=== PATIENT | male | born 1975 | race Caucasian/White ===

== ENCOUNTER 2017-04-14 23:04 | Emergency (ER) | payer SELFPAY ==
[2017-04-14 23:09] VITALS: BP 153/96; PULSE 85; TEMP 98.6; BMI 31.5
--- NOTE | 2017-04-15 00:35 | PDOC ---
History of Present Illness - General Chief Complaint: Ear Problem Stated Complaint: EAR PROBLEM Time Seen by Provider: 04/15/17 00:14 History Source: Patient - History of Present Illness Initial Comments: 04/15/17 00:30 42 year old male with right ear pain worsening. denies URI symptoms, reports swimming everyday. denies fever Past History - Past Medical History Allergies/Adverse Reactions: Allergies Allergy/AdvReac Type Severity Reaction Status Date / Time No Known Allergies Allergy Verified 04/14/17 23:08 Home Medications: Ambulatory Orders Ciprofloxacin HCl/Dexameth [Ciprodex Otic Suspension] 4 drop AD BID #1 bottle Cardiac Disorders: Yes (40% ej, has vena cava filter) Other medical history: PE, diverticulitis - Surgical History Abdominal Surgery: Yes (colon resection) - Psycho/Social/Smoking Cessation Hx Anxiety: No Suicidal Ideation: No Smoking Status: No Smoking History: Never smoked Number of Cigarettes Smoked Daily: 0 Review of Systems - Review of Systems Able to Perform ROS?: Yes Is the patient limited Sudanese proficient: No Constitutional: No: Symptoms Reported, See HPI, Chills, Diaphoresis, Fever, Loss of Appetite, Malaise, Night Sweats, Weakness, Weight Stable, Unintentional Wgt. Loss, Unexplained wgt Loss, Other HEENTM: Yes: Ear Pain. No: Symptoms Reported, See HPI, Eye Pain, Blurred Vision , Tearing, Recent change in vision, Double Vision, Cataracts, Ocular Prothesis, Ear Discharge, Nose Pain, Nose Congestion, Tinnitus, Nose Bleeding, Hearing Loss , Throat Pain, Throat Swelling, Mouth Pain, Dental Problems, Difficulty Swallowing, Mouth Swelling, Other Respiratory: No: Symptoms reported, See HPI, Cough, Orthopnea, Shortness of Breath, SOB with Exertion, SOB at Rest, Stridor, Wheezing, Productive cough, Hemoptysis, Other Cardiac (ROS): No: Symptoms Reported, See HPI, Chest Pain, Edema, Irregular Heart Rate, Lightheadedness, Palpitations, Syncope, Chest Tightness, Other *Physical Exam - Vital Signs Last Vital Signs Temp Pulse Resp BP Pulse Ox 98.6 F 85 18 153/96 99 04/14/17 23:05 04/14/17 23:05 04/14/17 23:05 04/14/17 23:05 04/14/17 23:05 - Physical Exam General Appearance: Yes: Appropriately Dressed HEENT: positive: Other (right ear canal erythema/ white discoloration. pain when pinna is pulled) Respiratory/Chest: positive: Lungs Clear, Normal Breath Sounds Medical Decision Making - Medical Decision Making 04/15/17 00:36 A: otitis externa *DC/Admit/Observation/Transfer Diagnosis at time of Disposition: Otitis externa of right ear Qualifiers: Otitis externa type: swimmer's ear Chronicity: acute Qualified Code(s): H60.331 - Swimmer's ear, right ear - Discharge Dispostion Disposition: HOME - Prescriptions Prescriptions: Ciprofloxacin HCl/Dexameth [Ciprodex Otic Suspension] 4 drop AD BID #1 bottle - Patient Instructions Printed Discharge Instructions: DI for Otitis Externa
[2017-04-15] MEDS ORDERED: IBUPROFEN 600 MG TABLET (FP) PO ONE ×2 (00:38→00:45)
== END 2017-04-15 00:54 | disposition home or self-care (01) ==
LOC: JER 23:04
DX: H60.331 Swimmer's ear, right ear (principal)
CPT/HCPCS: 99281-25

== ENCOUNTER 2017-09-08 13:57 | Emergency (ER) | payer OTHER ==
[2017-09-08 14:36] VITALS: BP 114/86; PULSE 73; TEMP 98.7; BMI 33.0
--- NOTE | 2017-09-08 14:41 | PDOC ---
Rapid Medical Evaluation Chief Complaint: Pain, Acute Time Seen by Provider: 09/08/17 14:34 Medical Evaluation: Allergies Allergy/AdvReac Type Severity Reaction Status Date / Time No Known Allergies Allergy Verified 04/14/17 23:08 Vital Signs Temp Pulse Resp BP Pulse Ox 98.7 F 73 18 114/86 100 09/08/17 14:32 09/08/17 14:32 09/08/17 14:32 09/08/17 14:32 09/08/17 14:32 09/08/17 14:39 The patient presents with a chief complaint of: [Left ankle and foot injury] I have performed a brief in-person evaluation of this patient. Pertinent physical exam findings: vss, [Pain to the left lateral malleolus, Paim to the posterior calf. ] I have ordered the following: [Xray to the left ankle and foot. ] The patient will proceed to FT for further evaluation. 09/08/17 14:48
--- NOTE | 2017-09-08 17:21 | PDOC ---
History of Present Illness - General Chief Complaint: Pain, Acute Stated Complaint: LT ANKLE PAIN Time Seen by Provider: 09/08/17 14:34 History Source: Patient Exam Limitations: No Limitations - History of Present Illness Initial Comments: CHIEF COMPLAINT: 42 y/o afebrile male with PMH diverticulitis with reverse colostomy, PE c/o left ankle pain s/p twisting it today at work. HISTORY OF PRESENT ILLNESS: Pt states he twisted his left ankle in an inversion fashion today at work. He states he tried to bear weight but it was too painful. He denies numbness/tingling. Vital signs on arrival are within normal limits. REVIEW OF SYSTEMS: GENERAL/CONSTITUTIONAL: No fever/chills. No weakness. No weight change. MUSCULOSKELETAL: +left ankle swelling and pain. No neck or back pain. SKIN: No rash or easy bruising. NEUROLOGIC: No headache, vertigo, loss of consciousness, or loss of sensation. PHYSICAL EXAM: VITAL_SIGNS: within normal limits GENERAL_APPEARANCE: alert, cooperative, no obvious discomfort. MENTAL_STATUS: speech clear, oriented X 3, responds appropriately to questions. NEURO: motor intact and sensory intact in injured extremity. EXTREMITIES: 2+ dorsalis pedis pulse affected extremity. Mild swelling with TTP to lateral malleolus of left ankle. deformity of medial ankle that is TTP that appears like a ligament tear. Pt cannot bear weight secondary to pain. pain with inversion and eversion of left ankle. SKIN: warm, dry, good color. Past History - Past Medical History Allergies/Adverse Reactions: Allergies Allergy/AdvReac Type Severity Reaction Status Date / Time No Known Allergies Allergy Verified 04/14/17 23:08 Home Medications: Ambulatory Orders NK [No Known Home Medication] 09/08/17 Cardiac Disorders: Yes (40% ej, has vena cava filter) COPD: No GI Disorders: Yes - Surgical History Abdominal Surgery: Yes (colon resection) - Suicide/Smoking/Psychosocial Hx Smoking Status: No Smoking History: Never smoked Have you smoked in the past 12 months: No Number of Cigarettes Smoked Daily: 0 Information on smoking cessation initiated: No Hx Alcohol Use: Yes (social) Drug/Substance Use Hx: Yes (social) Substance Use Type: Marijuana *Physical Exam - Vital Signs Last Vital Signs Temp Pulse Resp BP Pulse Ox 98.7 F 73 18 114/86 100 09/08/17 14:32 09/08/17 14:32 09/08/17 14:32 09/08/17 14:32 09/08/17 14:32 Medical Decision Making - Medical Decision Making A/P: 42 y/o male with ankle injury today. Plan is as follows: 1. left foot/ankle xray Left foot/ankle xray IMPRESSION: NO evidence of acute fracture or dislocation. Will wrap with LA NENA bandage and provide crutches and an Ortho follow up. Will also give PO motrin. INstructed him to follow RICE instructions and f/u with ortho ESTELLE. The patient verbalizes understanding of all instructions, has no further questions and is awaiting discharge. *DC/Admit/Observation/Transfer Diagnosis at time of Disposition: Left ankle sprain Qualifiers: Encounter type: initial encounter Involved ligament of ankle: unspecified ligament Qualified Code(s): S93.402A - Sprain of unspecified ligament of left ankle, initial encounter - Discharge Dispostion Disposition: HOME Condition at time of disposition: Good - Referrals Referrals: Tye King MD [Primary Care Provider] - Nagi Sanz MD [Staff Physician] - - Patient Instructions Printed Discharge Instructions: How to Use Crutches, DI for Ankle Sprain, How To Perform RICE (Rest, Ice, Compress, Elevate) Additional Instructions: Discharge INstructions: -You sprained your ankle -Use LA NENA bandage and crutches for comfort -Take MOtrin or Ibuprofen with food for pain. -Follow RICE instructions -Follow up with Dr. Sanz as soon as possible if symptoms do not improve -REturn to the ER with any worsening or concerning symptoms - Post Discharge Activity Forms/Work/School Notes: Back to Work
[2017-09-08] MEDS ORDERED: IBUPROFEN 400 MG TABLET (FP) PO ONE ×2 (18:14→18:21)
== END 2017-09-08 18:27 | disposition home or self-care (01) ==
LOC: JERFT 13:57 → JER 13:57 → JERFT 18:27
DX: S93.402A Sprain of unspecified ligament of left ankle, initial encounter (principal); X50.1XXA Overexertion from prolonged static or awkward postures, initial encounter; Y93.H3 Activity, building and construction; Y92.69 Other specified industrial and construction area as the place of occurrence of the external cause; Y99.0 Civilian activity done for income or pay
CPT/HCPCS: 73610-TC-LT; 73630-TC-LT; 99281-25

== ENCOUNTER 2018-01-02 20:07 | Inpatient (IN) | payer OTHER ==
--- NOTE | 2018-01-02 20:11 | PDOC ---
Rapid Medical Evaluation Time Seen by Provider: 01/02/18 20:08 Medical Evaluation: Allergies Allergy/AdvReac Type Severity Reaction Status Date / Time No Known Allergies Allergy Verified 04/14/17 23:08 01/02/18 20:08 I have performed a brief in-person evaluation of this patient. The patient presents with a chief complaint of: epigastric cramps x1 week, SOB Pertinent physical exam findings: Lungs CTAB. Abd SNTND. HR-134 I have ordered the following: labs, EKG, cxr The patient will proceed to the ED for further evaluation. Discharge Disposition - Diagnosis Epigastric abdominal pain - Referrals - Patient Instructions - Post Discharge Activity
[2018-01-02 20:47] LABS: BASO % 0.9 % (0-2.0); EOS % 1.5 % (0-4.5); HEMATOCRIT 41.2 % (35.4-49); HEMOGLOBIN 14.4 GM/dL (11.7-16.9); LYMPH % 17.9 % (8-40); MEAN CELL VOLUME 88.4 fl (80-96); MEAN PLT VOLUME 9.2 fl (7.5-11.1); MONO % 8.1 % (3.8-10.2); NEUT % 71.6 % (42.8-82.8); PLATELET COUNT 223 K/MM3 (134-434); RBC 4.66 M/mm3 (4.00-5.60); RDW 12.7 % (11.9-15.9); WHITE BLOOD COUNT 9.8 K/mm3 (4.0-10.0)
[2018-01-02] MEDS ORDERED: HEPARIN NA (PORCINE) 5,000 UNITS/ML 1ML VIAL IVPUSH PRN ×2 (21:22→21:25)
--- NOTE | 2018-01-02 21:26 | PDOC ---
Attending Attestation - HPI HPI: 01/02/18 21:59 The patient is a 42 year old male with a significant past medical history of pulmonary embolism (2005) who presents to the emergency department for evaluation of a 1 day history of pleuritic chest pain and shortness of breath. The patient describes right sided chest pain as sharp, exacerbated with deep inspiration. The patient reports associated symptom of fever. He reports intermittent episodes of sharp epigastric pain which occurred 1 week ago. The patient denies headache, changes in vision, dizziness, chills, diarrhea, constipation, or any changes in urinary output. Allergies: NKDA Social History: Reported marijuana use. No reported cigarette or alcohol consumption. Surgical history: Colon resection <Gigi Hooper - Last Filed: 01/02/18 21:59> - Resident Resident Name: Abel Levine - ED Attending Attestation I have performed the following: I have examined & evaluated the patient, The case was reviewed & discussed with the resident, I agree w/resident's findings & plan, Exceptions are as noted - Physicial Exam PE: 01/02/18 22:44 Patient is awake and alert, well-appearing, tachycardic and hypoxemic on room air Normocephalic and atraumatic PERRLA, EOMI No JVD CTA RRR No lower extremity edema - Medical Decision Making 01/02/18 22:45 Patient is a 42-year-old male with history of DVT/PE who presents with atraumatic right-sided chest and subscapular pain which is pleuritic in nature, tachycardia and hypoxemia. I suspect the. EKG shows no evidence of acute ischemia. Chest x-ray reveals no evidence of pneumothorax, cardiomegaly or pericardial effusion. I do not suspect a dissection at this time. We will administer a heparin bolus at 80 mg/kg pending CTA. Will rule out PE. Will reassess. 01/03/18 00:14 patient is Hemodynamically stable. Heart rate has decreased to 97. CTA of chest reveals multiple bilateral pulmonary emboli. Will initiate heparin drip. Will admit to telemetry further evaluation and treatment. Will obtain lower extremity Doppler ultrasound. <Gael Abernathy - Last Filed: 01/03/18 00:14> Attestations - Attestations Documentation prepared by Gigi Hooper, acting as medical director for Gael Abernathy MD. <Gigi Hoopre - Last Filed: 01/02/18 21:59>
--- NOTE | 2018-01-02 21:28 | PDOC ---
History of Present Illness - General Chief Complaint: Shortness of Breath Stated Complaint: RESPIRATORY Time Seen by Provider: 01/02/18 20:08 History Source: Patient Exam Limitations: No Limitations - History of Present Illness Initial Comments: 01/02/18 21:28 The patient is a 42M with a PMH of PE in 2005 not on anticoagulation who presents to the ER with 1 day history of pleuritic CP and shortness of breath. The patient states that 1 week ago the patient had sharp, intermittent epigastric pain associated with low grade fevers. He states that today, he began to feel R sided chest pain which he describes as sharp and worse with deep breaths. This was associated with shortness of breath. He denies nausea, vomiting, and does not believe this feels like his previous PE. Past History - Past Medical History Allergies/Adverse Reactions: Allergies Allergy/AdvReac Type Severity Reaction Status Date / Time No Known Allergies Allergy Verified 01/02/18 20:13 Home Medications: Ambulatory Orders NK [No Known Home Medication] 09/08/17 Cardiac Disorders: Yes (40% ej, has vena cava filter) COPD: No GI Disorders: Yes - Surgical History Abdominal Surgery: Yes (colon resection) - Suicide/Smoking/Psychosocial Hx Smoking Status: No Smoking History: Never smoked Have you smoked in the past 12 months: No Number of Cigarettes Smoked Daily: 0 Information on smoking cessation initiated: No Hx Alcohol Use: No Drug/Substance Use Hx: No Substance Use Type: Marijuana Review of Systems - Review of Systems Able to Perform ROS?: Yes Comments:: 01/02/18 21:41 GENERAL/CONSTITUTIONAL: No fever or chills. No weakness. HEAD, EYES, EARS, NOSE AND THROAT: No change in vision. No ear pain or discharge. No sore throat. CARDIOVASCULAR: Positive for CP. No palpitations or lightheadedness. RESPIRATORY: Positive for shortness of breath. No cough, wheezing, or hemoptysis. GASTROINTESTINAL: No nausea, vomiting, diarrhea, constipation, or abdominal pain. GENITOURINARY: No dysuria, frequency, hematuria, or change in urination. MUSCULOSKELETAL: No joint or muscle swelling or pain. No neck or back pain. SKIN: No rash or lesions. NEUROLOGIC: No headache, numbness, tingling, weakness, loss of consciousness, or change in strength/sensation. ENDOCRINE: No increased thirst. No abnormal weight change. HEMATOLOGIC/LYMPHATIC: No anemia, easy bleeding, or history of blood clots. ALLERGIC/IMMUNOLOGIC: No hives or skin allergy. Is the patient limited Albanian proficient: No *Physical Exam - Vital Signs Last Vital Signs Temp Pulse Resp BP Pulse Ox 98.6 F 134 H 17 144/76 100 01/02/18 20:10 01/02/18 20:10 01/02/18 20:10 01/02/18 20:10 01/02/18 20:10 - Physical Exam Comments: 01/02/18 21:43 GENERAL: Well developed, well nourished. Awake and alert. No acute distress. HEENT: Normocephalic, atraumatic. Hearing grossly normal. Moist mucous membranes. PERRLA, EOMI. No conjunctival pallor. Sclera are non-icteric. NECK: Supple. Full ROM. CARDIOVASCULAR: Regular rate and rhythm. No murmurs, rubs, or gallops. Distal pulses are 2+ and symmetric. PULMONARY: No evidence of respiratory distress. Decreased lung sounds in R lung. No wheezing, rales or rhonchi. ABDOMINAL: Soft. Non-tender. Non-distended. No rebound or guarding. GENITOURINARY: No CVA tenderness bilaterally. MUSCULOSKELETAL: Normal range of motion at all joints. No bony deformities or tenderness. EXTREMITIES: No cyanosis. No clubbing. No edema. No calf tenderness or swelling. SKIN: Warm and dry. Normal capillary refill. No rashes. No jaundice. NEUROLOGICAL: Alert, awake, appropriate. Cranial nerves 2-12 intact. Normal speech. Gait is normal without ataxia. PSYCHIATRIC: Cooperative. Good eye contact. Appropriate mood and affect. Heart Score/ECG Review #1 General ECG Interpretation: Sinus Rhythm, Normal Rate, Normal Intervals, No acute ischemic changes Compared to previous ECG there are: Changes noted 01/02/18 21:44 Vent rate 130 Sinus tach NM 142 QRS 92 QTc 423 No acute ischemic changes No ADALBERTO or STD ED Treatment Course - LABORATORY CBC & Chemistry Diagram: 01/02/18 20:37 01/02/18 20:37 - ADDITIONAL ORDERS Additional order review: 01/02/18 20:37 RBC 4.66 MCV 88.4 MCHC 35.0 RDW 12.7 MPV 9.2 Neutrophils % 71.6 Lymphocytes % 17.9 Monocytes % 8.1 Eosinophils % 1.5 Basophils % 0.9 - RADIOLOGY Radiology Studies Ordered: Category Date Time Status CHEST X-RAY PORTABLE* [RAD] Stat Radiology 01/02/18 21:08 Completed Medical Decision Making - Medical Decision Making 01/02/18 21:25 The patient is a 42M with a PMH of PE in 2005 and diverticulitis s/p colostomy who presents to the ER with pleuritic CP which is R sided. I have a very high suspicion of PE in this patient. CXR does not indicate pericardial effusion, no pneumothroax, and no dissection. I have discussed the risks and benefits of a heparin bolus with the patient. The patient is not currently anticoagulated. Will bolus 8000 while pending BUN/Cr for CTA. Pt is not currently hypotensive but has developed tachypnea since his stay in ER. Tachy to 110's-120's which is sinus tach per EKG. 01/03/18 00:27 CTA was done indicating b/l PE. Will place pt on heparin drip. Pt endorsed to Dr. Jarrell for admission. *DC/Admit/Observation/Transfer Diagnosis at time of Disposition: Pulmonary embolism Qualifiers: Pulmonary embolism type: other Chronicity: acute Acute cor pulmonale presence: without acute cor pulmonale Qualified Code(s): I26.99 - Other pulmonary embolism without acute cor pulmonale - Discharge Dispostion Condition at time of disposition: Guarded Decision to Admit order: Yes - Referrals - Patient Instructions - Post Discharge Activity
[2018-01-02 21:32] LABS: ALBUMIN 3.9 g/dl (3.4-5.0); ANION GAP 8 (8-16); BILIRUBIN,TOTAL 1.2 mg/dL (0.2-1.0); BLOOD UREA NITROGEN 7 mg/dL (7-18); CALCIUM 8.7 mg/dL (8.5-10.1); CHLORIDE 102 mmol/L (98-107); CO2 27 mmol/L (21-32); CREATININE 1.2 mg/dL (0.7-1.3); GLUCOSE,RANDOM 117 mg/dL (74-106); LIPASE 80 U/L (73-393); SGPT/ALT 17 U/L (12-78); SODIUM 137 mmol/L (136-145); TOT PROT 7.6 g/dl (6.4-8.2)
[2018-01-02 21:35] LABS: ALK PHOS 89 U/L (45-117)
[2018-01-02 21:39] LABS: POTASSIUM 3.8 mmol/L (3.5-5.1); SGOT/AST 18 U/L (15-37)
[2018-01-02 22:37] LABS: URINE APPEARANCE CLEAR; URINE BILIRUBIN NEGATIVE (<2.0 mg/dL); URINE COLOR YELLOW; URINE GLUCOSE (UA) NEGATIVE (NEGATIVE); URINE KETONE NEGATIVE (NEGATIVE); URINE LEUK ESTERASE NEGATIVE (NEGATIVE); URINE NITRITE NEGATIVE (NEGATIVE); URINE PROTEIN NEGATIVE (NEGATIVE); URINE UROBILINOGEN NEGATIVE mg/dL (0.2-1.0)
[2018-01-02 23:56] LABS: INR 1.38 (0.82-1.09); PROTHROMBIN TIME (PATIENT) 15.6 SEC (9.7-13.0)
[2018-01-03] MEDS ORDERED: HEPARIN INFUSION - 25,000 UNITS/500 ML INFUS.BAG IVPB SCH (00:30)
[2018-01-03] MEDS: HEPARIN INFUSION - 25,000 UNITS/500 ML INFUS.BAG IVPB SCH (00:43)
--- NOTE | 2018-01-03 00:46 | HP ---
CHIEF COMPLAINT: Pain R chest with SOB x1 day PCP: HISTORY OF PRESENT ILLNESS: Pt is a 42 yo M with PMHx of diverticulosis, previous PE s/p surgical clot removal, with IVC filter, not on anticoagulation presenting with a hx of sudden onset of sharp 8/10, non radiating right sided chest pain that started while watching TV. The pain was worsened by taking deep breaths, resulting in shallow respiration. No N/V/diaphoresis. No associated leg swelling. Pt has been having intermittent R groin cramps, with no associated swellings. Since August 2017, he has been on workers compensation for hurting his L foot/heel. A week prior to presentation, he felt generalized malaise,and he noticed recurrent abdominal cramping associated with chills but no objective fevers, and relieved with tylenol. No change in diet or bowel habits. He then started to experience cramps in the R groin "charley horses" worsened by leg flexion and relieved by straightening the legs or moving around. He came in today because of difficulty breathing from the chest pain. He had a sudden large PE in 2005 after rising from a hospital bed prior to surgery for diverticulosis in 2005. At that time he had thoracotomy done for clot retrieval and IVC filter insertion. He remained on coumadin for 6 years following, but was finally taken off coumadin around 5 years ago. Pt presented to the ED tachycardic, tachypneic and was sating in the 90s. He was placed on 2L O2 , now sating in 100s. ER course was notable for: (1) CXR- N, CBC-wnl, CMP-wnl, PT-1,13, UA-ve (2) CTA- Bilateral PE - with filling defects in both R and L upper lobe brs. (3)Pt was started on heparin drip (4) EKG- sinus tachycardia, Ventricular rate 130bpm, Qt/QTc-288/423 Recent Travel: PAST MEDICAL HISTORY: Diverticulosis PE (2005) PAST SURGICAL HISTORY: Thoracotomy with clot retrieval and IVC filter insertion Social History: Lives with mother and 22 yr old son Smoking:Never Alcohol:Social Drugs: Family History: Prostate cancer in grandfather Lung cancer in non smoking grandmother Allergies No Known Allergies Allergy (Verified 01/02/18 20:13) HOME MEDICATIONS: Home Medications Medication Instructions Recorded NK [No Known Home Medication] 09/08/17 REVIEW OF SYSTEMS CONSTITUTIONAL: Absent: fever, chills+, diaphoresis, generalized weakness, malaise, loss of appetite, weight change HEENT: Absent: rhinorrhea, nasal congestion, throat pain, throat swelling, difficulty swallowing, mouth swelling, ear pain, eye pain, visual changes CARDIOVASCULAR: Absent: chest pain, syncope, palpitations, irregular heart rate, lightheadedness , peripheral edema RESPIRATORY: Absent: cough, shortness of breath+, dyspnea with exertion, orthopnea, wheezing , stridor, hemoptysis GASTROINTESTINAL: Absent: abdominal pain+, abdominal distension, nausea, vomiting, diarrhea, constipation, melena, hematochezia GENITOURINARY: Absent: dysuria, frequency, urgency, hesitancy, hematuria, flank pain, genital pain MUSCULOSKELETAL: Absent: myalgia, arthralgia, joint swelling, back pain, neck pain SKIN: Absent: rash, itching, pallor HEMATOLOGIC/IMMUNOLOGIC: Absent: easy bleeding, easy bruising, lymphadenopathy, frequent infections ENDOCRINE: Absent: unexplained weight gain, unexplained weight loss, heat intolerance, cold intolerance NEUROLOGIC: Absent: headache, focal weakness or paresthesias, dizziness, unsteady gait, seizure, mental status changes, bladder or bowel incontinence PSYCHIATRIC: Absent: anxiety, depression, suicidal or homicidal ideation, hallucinations. PHYSICAL EXAMINATION Vital Signs - 24 hr 01/02/18 20:10 Temperature 98.6 F Pulse Rate 134 H Respiratory 17 Rate Blood Pressure 144/76 O2 Sat by Pulse 100 Oximetry (%) GENERAL: Awake, alert, and fully oriented, on 2L NC, speaks in full sentences, not using accessory muscles. NECK: Normal range of motion, supple without lymphadenopathy, JVD, or masses. LUNGS: Breath sounds equal, clear to auscultation bilaterally. No wheezes, and no crackles. HEART: Sternotomy scar. tachycardic, S1 and S2 without murmur ABDOMEN: Midline, infraumbilical surgical scar, LLQ surgical scar. Soft, nontender, not distended, normoactive bowel sounds, No visible inguinal masses, no hernias, no tenderness to palpation MUSCULOSKELETAL: Normal range of motion at all joints. UPPER EXTREMITIES: 2+ pulses, warm, well-perfused. No cyanosis. LOWER EXTREMITIES: 2+ pulses, warm, well-perfused. No calf tenderness. No peripheral edema. NEUROLOGICAL: Cranial nerves II-XII intact. Normal speech. Normal gait. Laboratory Results - last 24 hr 01/02/18 01/02/18 01/02/18 20:37 20:37 20:37 WBC 9.8 RBC 4.66 Hgb 14.4 Hct 41.2 MCV 88.4 MCH 31.0 MCHC 35.0 RDW 12.7 Plt Count 223 MPV 9.2 Neutrophils % 71.6 Lymphocytes % 17.9 Monocytes % 8.1 Eosinophils % 1.5 Basophils % 0.9 PT with INR INR Sodium 137 Potassium 3.8 Chloride 102 Carbon Dioxide 27 Anion Gap 8 BUN 7 Creatinine 1.2 Creat Clearance w eGFR > 60 Random Glucose 117 H Calcium 8.7 Magnesium 2.0 Total Bilirubin 1.2 H AST 18 ALT 17 Alkaline Phosphatase 89 Creatine Kinase 74 Troponin I < 0.02 Total Protein 7.6 Albumin 3.9 Lipase 80 TSH 0.70 Urine Color Urine Appearance Urine pH Ur Specific [place] Urine Protein Urine Glucose (UA) Urine Ketones Urine Blood Urine Nitrite Urine Bilirubin Urine Urobilinogen Ur Leukocyte Esterase 01/02/18 01/02/18 22:24 23:34 WBC RBC Hgb Hct MCV MCH MCHC RDW Plt Count MPV Neutrophils % Lymphocytes % Monocytes % Eosinophils % Basophils % PT with INR 15.60 H INR 1.38 H Sodium Potassium Chloride Carbon Dioxide Anion Gap BUN Creatinine Creat Clearance w eGFR Random Glucose Calcium Magnesium Total Bilirubin AST ALT Alkaline Phosphatase Creatine Kinase Troponin I Total Protein Albumin Lipase TSH Urine Color Yellow Urine Appearance Clear Urine pH 5.0 Ur Specific [place] 1.015 Urine Protein Negative Urine Glucose (UA) Negative Urine Ketones Negative Urine Blood Negative Urine Nitrite Negative Urine Bilirubin Negative Urine Urobilinogen Negative Ur Leukocyte Esterase Negative ASSESSMENT/PLAN: 2 yo M with PMHx of diverticulosis, previous PE s/p surgical clot removal, with IVC filter, not on anticoagulation, presenting with a hx of sudden onset of sharp right sided chest pain at rest with associated SOB, found to have bilateral PE and placed on heparin drip Recurrent PE: Likely unprovoked considering his age and absent visible risk factors Previous clot massive enough for thoracotomy for thrombectomy Continue heparin drip For likely washout then placing on NOAC Needs work up Hemonc consult PTT Groin pain: Cramping in nature, no visible swellings RLE duplex Tabs tylenol 650mg Q4H PO PRN PPX: DVT- heparin GI- not needed at this time Dispo: Admit Tele Visit type - Emergency Visit Emergency Visit: Yes ED Registration Date: 01/03/18 Care time: The patient presented to the Emergency Department on the above date and was hospitalized for further evaluation of their emergent condition. - New Patient This patient is new to me today: Yes Date on this admission: 01/03/18 - Critical Care Critical Care patient: No Hospitalist Screening - Colonoscopy Questionnaire Colonoscopy Questionnaire: Colonoscopy Questionnaire - Patient: 50 - 75 years old and never had a screening colonoscopy: No History of colon or rectal polyps, or CA: No History of IBD, Crohn's disease or UC: No History of abdominal radiation therapy as a child: No - Relative: 1 with colon or rectal CA, or polyps at age 60 or younger: No Colon or rectal CA diagnosed at age 45 or younger: No Multiple relatives with colon or rectal CA: No - Outcome: Screening Result: Negative Screen
--- NOTE | 2018-01-03 02:09 | PN ---
Teaching Attending Note Name of Resident: Susana Jarrell ATTENDING PHYSICIAN STATEMENT I saw and evaluated the patient. I reviewed the resident's note and discussed the case with the resident. I agree with the resident's findings and plan as documented. SUBJECTIVE: Patient is a 42 yo man with history of pulmonary embolism in 2006, diverticulitis, colon resection, IVC filter, not on anticoagulation presented with a sudden onset of sharp nonradiating right sided pleuritic pain that started while he was watching TV. The pain was worsened by taking deep breaths, resulting in shallow respiration. In the ER CTPA showed multiple bilateral PE. In 2005, he got workup for PE, got IVC filter and started on coumadin which was stopped in 2011? because they said his PE was "provoked". Has right upper thigh pain. No obvious risk factor for PE. OBJECTIVE: Vital Signs Period Temp Pulse Resp BP Sys/Umana Pulse Ox Last 24 Hr 98.6 F 134 17 144/76 97-100 Alert, but in no acute distress. HEENT: No Jaundice, redness or discharge, PERRLA, EOMI. External ears normal and hearing grossly intact. No nasal discharge. Neck: Supple, nontender. No palpable adenopathy or thyromegaly. No JVD Chest: Good effort. Clear to auscultation and percussion. Heart: Regular. No S3, rub or murmur Abdomen: Not distended, soft, nontender and no HSM Ext: Peripheral pulses intact. No leg edema. No calf/thigh tenderness or swelling Neuro: Alert. Oriented x3. CN 2-12 grossly intact. Sensation grossly intact in all four extremities and DTR are symmetric. Home Medications Medication Instructions Recorded NK [No Known Home Medication] 09/08/17 Current Medications Generic Name Dose Route Start Last Admin Trade Name Freq PRN Reason Stop Dose Admin Acetaminophen 650 mg 01/03/18 01:24 Tylenol - PO Q4H PRN PAIN LEVEL 1-5 Heparin Sodium (Porcine) 8,000 unit 01/02/18 21:25 01/02/18 22:40 Heparin - IVPUSH 8,000 unit PRN PRN Administration Heparin Heparin Sodium/Dextrose 25,000 units in 500 mls @ 36 mls/hr 01/03/18 00:30 00:43 Heparin Infusion - IVPB 1,800 units/hr TITR MIGUEL 36 mls/hr Protocol Administration 1,800 UNITS/HR Laboratory Results - last 24 hr 01/02/18 01/02/18 01/02/18 20:37 20:37 20:37 WBC 9.8 RBC 4.66 Hgb 14.4 Hct 41.2 MCV 88.4 MCH 31.0 MCHC 35.0 RDW 12.7 Plt Count 223 MPV 9.2 Neutrophils % 71.6 Lymphocytes % 17.9 Monocytes % 8.1 Eosinophils % 1.5 Basophils % 0.9 PT with INR INR Sodium 137 Potassium 3.8 Chloride 102 Carbon Dioxide 27 Anion Gap 8 BUN 7 Creatinine 1.2 Creat Clearance w eGFR > 60 Random Glucose 117 H Calcium 8.7 Magnesium 2.0 Total Bilirubin 1.2 H AST 18 ALT 17 Alkaline Phosphatase 89 Creatine Kinase 74 Troponin I < 0.02 Total Protein 7.6 Albumin 3.9 Lipase 80 TSH 0.70 Urine Color Urine Appearance Urine pH Ur Specific [place] Urine Protein Urine Glucose (UA) Urine Ketones Urine Blood Urine Nitrite Urine Bilirubin Urine Urobilinogen Ur Leukocyte Esterase 01/02/18 01/02/18 22:24 23:34 WBC RBC Hgb Hct MCV MCH MCHC RDW Plt Count MPV Neutrophils % Lymphocytes % Monocytes % Eosinophils % Basophils % PT with INR 15.60 H INR 1.38 H Sodium Potassium Chloride Carbon Dioxide Anion Gap BUN Creatinine Creat Clearance w eGFR Random Glucose Calcium Magnesium Total Bilirubin AST ALT Alkaline Phosphatase Creatine Kinase Troponin I Total Protein Albumin Lipase TSH Urine Color Yellow Urine Appearance Clear Urine pH 5.0 Ur Specific [place] 1.015 Urine Protein Negative Urine Glucose (UA) Negative Urine Ketones Negative Urine Blood Negative Urine Nitrite Negative Urine Bilirubin Negative Urine Urobilinogen Negative Ur Leukocyte Esterase Negative ASSESSMENT AND PLAN: Will admit as an Observation case since expected length of stay isless than 2 midnights. 1. Pulmonary embolism - Patient has been started on heparin drip after initial bolus dose in the ER. Will monitor for hypoxia and hypotension and switch to DOAC tomorrow - about 3 hours after stopping IV heparin. Monitor anti-Hep Xa level. Needs comprehensive workup to search for risk factor for PE. 2. Right thigh pain - Doppler scan to rule out DVT. 3. Advance directives - Full code.
[2018-01-03] MEDS: ACETAMINOPHEN 325 MG TABLET (FP) PO PRN ×2 (03:11→21:35)
[2018-01-03 03:37] VITALS: BMI 31.1
[2018-01-03 07:43] LABS: BASO % 0.3 % (0-2.0); HEMATOCRIT 37.9 % (35.4-49); HEMOGLOBIN 13.2 GM/dL (11.7-16.9); LYMPH % 21.9 % (8-40); MCH 30.9 pg (25.7-33.7); MCHC 34.9 g/dl (32.0-35.9); MEAN CELL VOLUME 88.6 fl (80-96); MEAN PLT VOLUME 9.4 fl (7.5-11.1); MONO % 8.5 % (3.8-10.2); NEUT % 68.3 % (42.8-82.8); PLATELET COUNT 224 K/MM3 (134-434); RBC 4.28 M/mm3 (4.00-5.60); WHITE BLOOD COUNT 9.8 K/mm3 (4.0-10.0)
[2018-01-03 08:29] LABS: MAGNESIUM 2.1 mg/dL (1.8-2.4); PHOSPHOROUS 4.2 mg/dL (2.5-4.9)
--- NOTE | 2018-01-03 11:08 | CONSULT ---
Consult Consult Specialty:: Hematology/Oncology Referred by:: Dr. SRIVASTAVA Reason for Consultation:: Bilateral PE's - History of Present Illness Chief Complaint: Shortness of breath History of Present Illness: 42 y/o male with a prior Hxx of PE s/p thoracotomy for clot removal and IVC filter placement in 2005 prior to surgery for diverticulosis, not on AC presented with right sided chest pain. Pt was on coumadin for 6 years following the PE. In the ED, he was noted to be tachycardic, tachypneic, CTA showed the presence of a bilateral PE with filling defects in R, L upper lobes. EKG showed sinus tachycardia. He was started on IV heparin. Hematology/oncology has been consulted for further management. 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 He says he is able to ambulate with crutches and the help of his other foot. He has no other major recent medical problems, surgeries etc. - History Source History Provided By: Patient Limitations to Obtaining History: No Limitations - Alcohol/Substance Use Hx Alcohol Use: No - Smoking History Smoking history: Never smoked Have you smoked in the past 12 months: No Aproximately how many cigarettes per day: 0 Home Medications - Allergies Allergies/Adverse Reactions: Allergies Allergy/AdvReac Type Severity Reaction Status Date / Time No Known Allergies Allergy Verified 01/02/18 20:13 - Home Medications Home Medications: Ambulatory Orders NK [No Known Home Medication] 09/08/17 Review of Systems Findings/Remarks: SOB, pain in the right upper quadrant migrating upto his chin Physical Exam Vital Signs: Vital Signs Temperature 98.3 F 01/03/18 06:00 Pulse Rate 79 01/03/18 06:00 Respiratory Rate 20 01/03/18 06:00 Blood Pressure 107/63 01/03/18 06:00 O2 Sat by Pulse Oximetry (%) 98 01/03/18 03:42 Labs: CBC, BMP 01/03/18 06:00 01/02/18 20:37 Assessment/Plan 42 y/o male with Hx of prior bilateral PE (unprovoked, as happened prior to surgery per patients account) sp 5 years on coumadin and with IVC filter in place now presenting with another unprovoked B/L PE Acute PE -Agree with plan to place patient on unfractionated heparin with a bridge to coumadin per his choice. I discussed DOAC's with him at bedside today but he has a preference for coumadin- having taken it in the past. -continue O2 via NC to keep o2 sats >90% -recommend early ambulation -if he becomes hemodyanamially unstable, hypotensive with SBP <80 , needs urgent evaluation for thrombectomy/ thrombolytic therapy -discuss with vascular surgery if indwelling filter can be removed as this is likely a nidus for clot formation at this time Hypercoagulable work-up -given that he is 42 years of age and this is a second unprovoked PE. definitely needs full hypercoagulable work-up, to be repeated again in 12 weeks -would recommend checking Factor V leiden, prothrombin G [id number] mutation, Protein C & S levels (could be artificially altered however in the setting of acute PE and AC), Antithrombin III, JAK2 mutation, -also include work-up for anti-phospholipid syndrome (lupus anticoagulant, Anticardiolipin Ab IgG & IgM, AntiB2 glycoprotein I IgG/IgA) -He needs close follow-up with hematology upon discharge. Thank you for the consultation.
--- NOTE | 2018-01-03 15:13 | HOSP ---
Subjective - Review of Symptoms Subjective: asymptomatic. states CP has resolved since starting medication last night. also breathing has improved. denies CP, SOB, fever, chills, N/V/C/D, hemoptysis Current Medications Generic Name Dose Route Start Last Admin Trade Name Freq PRN Reason Stop Dose Admin Acetaminophen 650 mg 01/03/18 01:24 01/03/18 03:11 Tylenol - PO 650 mg Q4H PRN Administration PAIN LEVEL 1-5 Apixaban 10 mg 01/03/18 22:00 Eliquis - PO BID MIGUEL Heparin Sodium (Porcine) 8,000 unit 01/02/18 21:25 01/02/18 22:40 Heparin - IVPUSH 8,000 unit PRN PRN Administration Heparin Heparin Sodium/Dextrose 25,000 units in 500 mls @ 36 mls/hr 01/03/18 00:30 00:43 Heparin Infusion - IVPB 1,800 units/hr TITR MIGUEL 36 mls/hr Protocol Administration 1,800 UNITS/HR Last Vital Signs Temp Pulse Resp BP Pulse Ox 98.5 F 82 18 124/68 98 01/03/18 13:50 01/03/18 13:50 01/03/18 13:50 01/03/18 13:50 01/03/18 10:00 General NAD CV S1 S2 RRR no murmur/rub/gallop Lungs CTA B/L no wheezing/rales/rhonchi CBCD WBC 9.8 K/mm3 (4.0-10.0) 01/03/18 06:00 RBC 4.28 M/mm3 (4.00-5.60) 01/03/18 06:00 Hgb 13.2 GM/dL (11.7-16.9) 01/03/18 06:00 Hct 37.9 % (35.4-49) 01/03/18 06:00 MCV 88.6 fl (80-96) 01/03/18 06:00 MCHC 34.9 g/dl (32.0-35.9) 01/03/18 06:00 RDW 13.0 % (11.9-15.9) 01/03/18 06:00 Plt Count 224 K/MM3 (134-434) 01/03/18 06:00 MPV 9.4 fl (7.5-11.1) 01/03/18 06:00 CMP Sodium 137 mmol/L (136-145) 01/02/18 20:37 Potassium 3.8 mmol/L (3.5-5.1) 01/02/18 20:37 Chloride 102 mmol/L (98-107) 01/02/18 20:37 Carbon Dioxide 27 mmol/L (21-32) 01/02/18 20:37 Anion Gap 8 (8-16) 01/02/18 20:37 BUN 7 mg/dL (7-18) 01/02/18 20:37 Creatinine 1.2 mg/dL (0.7-1.3) 01/02/18 20:37 Creat Clearance w eGFR > 60 (>60) 01/02/18 20:37 Calcium 8.7 mg/dL (8.5-10.1) 01/02/18 20:37 Total Bilirubin 1.2 mg/dL (0.2-1.0) H 01/02/18 20:37 AST 18 U/L (15-37) 01/02/18 20:37 ALT 17 U/L (12-78) 01/02/18 20:37 Alkaline Phosphatase 89 U/L (45-117) 01/02/18 20:37 Total Protein 7.6 g/dl (6.4-8.2) 01/02/18 20:37 Albumin 3.9 g/dl (3.4-5.0) 01/02/18 20:37 A/P 42yo M with PMH PE s/p IVC filter and diverticulitis s/p colon resection presented to ER with SOB and pleuritic CP and found to have B/L PE 1. B/L PE- on heparin ggt. symptoms improved. saturating well on 2L NC, hemodynamically stable. pt states he had hypercoagability workup in the past which was negative. IVC filter was placed and never removed becauses the side of the filter eroded into the side of the IVC. will switch pt over to eliquis 10mg BID tonight. stop heparin ggt at 8pm. counselled on risk/benefits of NOAC. states he was difficult to control on coumadin and would prefer NOAC. recommend to f/u with hematology to repeat hypercoagability workup in the future as this is a 2nd event 2. diverticulitis s/p colon resection 3. d/w pt in detail about new medication and need for follow up. all questions answered. spoke with hematology as well regarding plan. if pt remains hemodynamically stable can d/c tomorrow on eliquis Physical Examination Vital Signs: Vital Signs Temperature 98.5 F 01/03/18 13:50 Pulse Rate 82 01/03/18 13:50 Respiratory Rate 18 01/03/18 13:50 Blood Pressure 124/68 01/03/18 13:50 O2 Sat by Pulse Oximetry (%) 98 01/03/18 10:00 Labs: CBC, BMP 01/03/18 06:00 01/02/18 20:37
[2018-01-03] MEDS: APIXABAN 5 MG TABLET PO SCH (21:35)
[2018-01-04] MEDS: HEPARIN INFUSION - 25,000 UNITS/500 ML INFUS.BAG IVPB SCH (06:21)
[2018-01-04] MEDS: ACETAMINOPHEN 325 MG TABLET (FP) PO PRN (06:21)
[2018-01-04 07:38] LABS: HEMATOCRIT 39.3 % (35.4-49); HEMOGLOBIN 13.4 GM/dL (11.7-16.9); MEAN CELL VOLUME 88.1 fl (80-96); MEAN PLT VOLUME 9.4 fl (7.5-11.1); PLATELET COUNT 246 K/MM3 (134-434); RBC 4.46 M/mm3 (4.00-5.60); RDW 12.8 % (11.9-15.9); WHITE BLOOD COUNT 8.7 K/mm3 (4.0-10.0)
[2018-01-04] MEDS: APIXABAN 5 MG TABLET PO SCH ×2 (08:55→09:29)
--- NOTE | 2018-01-04 11:40 | PN ---
Physical Exam: SUBJECTIVE: Patient seen and examined. He is complaining of right sided back pain, radiating down. He denies SOB, palpitations. OBJECTIVE: Vital Signs Period Temp Pulse Resp BP Sys/Umana Pulse Ox Last 24 Hr 98.0 F-99.4 F 69-92 18-20 110-132/56-88 97-99 GENERAL: The patient is awake, alert, and fully oriented, in no acute distress. HEAD: Normal with no signs of trauma. EYES: extraocular movements intact, sclera anicteric, conjunctiva clear. ENT: moist mucous membranes. LUNGS: Breath sounds equal, clear to auscultation bilaterally, no wheezes, no crackles, no accessory muscle use. HEART: Regular rate and rhythm, S1, S2 without murmur, rub or gallop. EXTREMITIES: no edema. NEUROLOGICAL: Normal speech, gait not observed. PSYCH: Normal mood, normal affect. SKIN: Warm, dry, normal turgor. Laboratory Results - last 24 hr 01/04/18 06:00 WBC 8.7 RBC 4.46 Hgb 13.4 Hct 39.3 MCV 88.1 MCH 30.0 MCHC 34.0 RDW 12.8 Plt Count 246 MPV 9.4 Active Medications Generic Name Dose Route Start Last Admin Trade Name Freq PRN Reason Stop Dose Admin Acetaminophen 650 mg 01/03/18 01:24 01/04/18 06:21 Tylenol - PO 650 mg Q4H PRN Administration PAIN LEVEL 1-5 Apixaban 10 mg 01/03/18 22:00 01/04/18 09:29 Eliquis - PO Not Given BID [facility] Heparin Sodium (Porcine) 8,000 unit 01/02/18 21:25 01/02/18 22:40 Heparin - IVPUSH 8,000 unit PRN PRN Administration Heparin Heparin Sodium/Dextrose 25,000 units in 500 mls @ 36 mls/hr 01/03/18 00:30 06:21 Heparin Infusion - IVPB Not Given TITR [facility] Protocol 1,800 UNITS/HR ASSESSMENT/PLAN: 42 yo M with PMHx of diverticulosis, previous PE s/p surgical clot removal, with IVC filter, not on anticoagulation, presenting with a hx of sudden onset of sharp right sided chest pain at rest with associated SOB, found to have bilateral PE and placed on heparin drip that was transitioned to Eliquis. Recurrent PE: -second PE, recently immobilized due to foot trauma -previously had thrombectomy-Continue Eliquis 10 mg BID -Hematology consulted, will need to f/u as outpatient Right back pain radiating to groin: RLE duplex done, UA nl, Renal US normal tylenol 650mg Q4H PO PRN PPX: DVT Eliquis Disposition: Tele, discharge today Problem List - Problems (1) Pulmonary embolism Code(s): I26.99 - OTHER PULMONARY EMBOLISM WITHOUT ACUTE COR PULMONALE Qualifiers: Pulmonary embolism type: other Chronicity: acute Acute cor pulmonale presence: without acute cor pulmonale Qualified Code(s): I26.99 - Other pulmonary embolism without acute cor pulmonale Visit type - Emergency Visit Emergency Visit: Yes ED Registration Date: 01/03/18 Care time: The patient presented to the Emergency Department on the above date and was hospitalized for further evaluation of their emergent condition. - New Patient This patient is new to me today: Yes Date on this admission: 01/04/18 - Critical Care Critical Care patient: No - Discharge Referral Referred to [facility] Med P.C.: No
--- NOTE | 2018-01-04 11:47 | PN ---
Teaching Attending Note Name of Resident: Sherri Platt ATTENDING PHYSICIAN STATEMENT I saw and evaluated the patient. I reviewed the resident's note and discussed the case with the resident. I agree with the resident's findings and plan as documented. SUBJECTIVE: OBJECTIVE: ASSESSMENT AND PLAN: 42 y/o male admitted for bilateral PE and DVT unprovoked pt to be d/c today on eliquis will obtain US of the abdomen to assess for possible renal stone due to colic pain that occurs from time to time patient can be d/c
--- NOTE | 2018-01-04 11:53 | PN ---
Progress Note (short form) - Note Progress Note: Hematology/Oncology follow-up Note S: Patient feels better today, walking around in the hallway. Last Vital Signs Temp Pulse Resp BP Pulse Ox 98.5 F 92 H 20 114/88 99 01/04/18 10:00 01/04/18 10:00 01/04/18 10:00 01/04/18 10:00 01/04/18 10:00 PE : AOX3, PERRLA CTA (BL) Soft abdomen No c/c/e Current Medications Generic Name Dose Route Start Last Admin Trade Name Freq PRN Reason Stop Dose Admin Acetaminophen 650 mg 01/03/18 01:24 01/04/18 06:21 Tylenol - PO 650 mg Q4H PRN Administration PAIN LEVEL 1-5 Apixaban 10 mg 01/03/18 22:00 01/04/18 09:29 Eliquis - PO Not Given BID [facility] Heparin Sodium (Porcine) 8,000 unit 01/02/18 21:25 01/02/18 22:40 Heparin - IVPUSH 8,000 unit PRN PRN Administration Heparin Heparin Sodium/Dextrose 25,000 units in 500 mls @ 36 mls/hr 01/03/18 00:30 06:21 Heparin Infusion - IVPB Not Given TITR [facility] Protocol 1,800 UNITS/HR A/P : 42 y/o male with Hx of prior bilateral PE (unprovoked, as happened prior to surgery per patients account) sp 5 years on coumadin and with IVC filter in place now presenting with another unprovoked B/L PE Acute PE -Patient is now agreeable to NOAC's- would recommend discharging him on apixaban (Eliquis) with close follow-up with Hematology. -probably will need life-long AC given his history -discharge plan per primary team Hypercoagulable work-up -given that he is 42 years of age and this is a second unprovoked PE. definitely needs full hypercoagulable work-up, to be repeated again in 12 weeks -would recommend checking Factor V leiden, prothrombin G [id number] mutation, Protein C & S levels (could be artificially altered however in the setting of acute PE and AC), Antithrombin III, JAK2 mutation, -also include work-up for anti-phospholipid syndrome (lupus anticoagulant, Anticardiolipin Ab IgG & IgM, AntiB2 glycoprotein I IgG/IgA)
--- NOTE | 2018-01-04 14:17 | DS ---
Physical Exam: SUBJECTIVE: Patient seen and examined. He is feeling good today. He denies SOB, palpitations. OBJECTIVE: Vital Signs Period Temp Pulse Resp BP Sys/Umana Pulse Ox Last 24 Hr 98.0 F-99.4 F 69-92 18-20 110-132/56-88 97-99 PHYSICAL EXAM GENERAL: The patient is awake, alert, and fully oriented, in no acute distress. HEAD: Normal with no signs of trauma. EYES: extraocular movements intact, sclera anicteric, conjunctiva clear. ENT: moist mucous membranes. LUNGS: Breath sounds equal, clear to auscultation bilaterally, no wheezes, no crackles, no accessory muscle use. HEART: Regular rate and rhythm, S1, S2 without murmur, rub or gallop. EXTREMITIES: no edema. NEUROLOGICAL: Normal speech, gait not observed. PSYCH: Normal mood, normal affect. SKIN: Warm, dry, normal turgor. LABS Laboratory Results - last 24 hr 01/04/18 06:00 WBC 8.7 RBC 4.46 Hgb 13.4 Hct 39.3 MCV 88.1 MCH 30.0 MCHC 34.0 RDW 12.8 Plt Count 246 MPV 9.4 HOSPITAL COURSE: Date of Admission:01/03/18 Date of Discharge: 01/04/18 Minutes to complete discharge: 35 Discharge Summary Reason For Visit: PULMONARY EMBOLISM Current Active Problems Pulmonary embolism (Acute) Hospital Course: The patient pt is a 42 yo M with PMHx of diverticulosis, s/p colon resection, previous PE s/p thrombectomy, with IVC filter in 2005, was on AC for 5 years, currently not on anticoagulation. He presented to the hospital complaining of sudden onset of sharp 8/10, non radiating right sided chest pain that started while watching TV. The pain was worsened by taking deep breaths, resulting in shallow respiration. No N/V/diaphoresis, no associated leg swelling. Pt has been having intermittent R groin cramps, with no associated swellings. Since August 2017, he has been on workers compensation for hurting his L foot/heel. Since then not physically active. On admission he was found to be tachycardic, tachypneic and his Oxygen Sat.. was in the 90s. He was placed on 2L O2. The patient had CT chest done that revealed bilateral PE and Dupplex of LE that revealed clot in right common femoral vein, proximal portion of the superficial right femoral vein and deep femoral vein. He was started on on heparin ggt. His symptoms improved, he was saturating well on 2L NC, hemodynamically stable. We consulted Hematology. The pt stated he had workup in the past which was negative. IVC filter was placed and never removed because the side of the filter eroded into the side of the IVC. We switched him to Eliquis 10mg BID and stopped heparin ggt. We counselled the patient on risk/benefits of NOAC. He stated that it was difficult to control on Coumadin and would prefer NOAC. We recommended to f/u with hematology to repeat hypercoagulable workup in the future as this is a 2nd event We discussed in detail about new medication and need for follow up with PCP and Hematology. He remained stable and was discharged home. Condition: Improved - Instructions Diet, Activity, Other Instructions: You were admitted for pulmonary embolism. 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 Take Eliquis as prescribed: 10 mg twice a day. IF you have chest pain, SOB, palpitations or worsening of any of your symptoms, come back to emergency room as soon as possible. Referrals: Tye King MD [Primary Care Provider] - 1 Week Gretel Lassiter MD [Staff Physician] - 2 Weeks Disposition: HOME - Home Medications Comprehensive Discharge Medication List: Ambulatory Orders Apixaban [Eliquis -] 10 mg PO BID 30 Days #60 tablet 01/04/18 Problem List - Problems (1) Pulmonary embolism Code(s): I26.99 - OTHER PULMONARY EMBOLISM WITHOUT ACUTE COR PULMONALE Qualifiers: Pulmonary embolism type: other Chronicity: acute Acute cor pulmonale presence: without acute cor pulmonale Qualified Code(s): I26.99 - Other pulmonary embolism without acute cor pulmonale This patient is new to me today: Yes Date on this admission: 01/04/18 Emergency Visit: No Critical Care patient: No - Discharge Referral Referred to [facility] Med P.C.: No
[2018-01-04 15:21] VITALS: BP 107/72; PULSE 88; TEMP 98.8
--- NOTE | 2018-01-06 00:39 | EKG ---
Test Reason : Blood Pressure : / mmHG Vent. Rate : 130 BPM Atrial Rate : 130 BPM P-R Int : 142 ms QRS Dur : 092 ms QT Int : 288 ms P-R-T Axes : 037 037 027 degrees QTc Int : 423 ms SINUS TACHYCARDIA OTHERWISE NORMAL ECG WHEN COMPARED WITH ECG OF 17-MAY-2013 11:46, VENT. RATE HAS INCREASED BY 64 BPM Confirmed by JOSE ALBERTO LOPES MD ([id number]) on 01/06/2018 12:39:44 AM Referred By: Confirmed By:JOSE ALBERTO LOPES MD
== END 2018-01-04 16:11 | disposition home or self-care (01) | DRG 197 ==
LOC: JER 20:07 → JERBED 01-03 00:28 → J4S 01-03 03:09
PROVIDERS: ADMIT Internal Medicine; ATTEND Internal Medicine
DX: I82.413 Acute embolism and thrombosis of femoral vein, bilateral (principal); I26.99 Other pulmonary embolism without acute cor pulmonale; R09.02 Hypoxemia; R00.0 Tachycardia, unspecified; K57.30 Diverticulosis of large intestine without perforation or abscess without bleeding; Z86.711 Personal history of pulmonary embolism
CPT/HCPCS: 36415; 71045-TC-FY; 71275-TC; 76775-TC; 80053; 81003; 82550; 83036; 83690; 83735; 84100; 84443; 84484; 85025; 85027; 85610; 85730; 93005; 93010; 93971-TC; 99285-25; J1644

== ENCOUNTER 2021-02-01 08:31 | Emergency (ER) | payer OTHER ==
[2021-02-01 08:36] VITALS: BP 133/96; PULSE 85; TEMP 98.3; BMI 31.1
== END 2021-02-01 09:06 | disposition home or self-care (01) ==
LOC: FER 08:31
DX: S05.01XA Injury of conjunctiva and corneal abrasion without foreign body, right eye, initial encounter (principal)
CPT/HCPCS: 99283-25

== ENCOUNTER 2024-06-03 07:29 | Emergency (ER) | payer OTHER ==
[2024-06-03 07:43] VITALS: BP 120/89; PULSE 99; RESP 18; TEMP 98.4; BMI 29.9
[2024-06-03] MEDS ORDERED: KETOROLAC TROMETHAMINE 30 MG/1 ML VIAL ONE (08:12)
[2024-06-03] MEDS ORDERED: diazePAM 5 MG TABLET ONE (08:12)
[2024-06-03] MEDS: KETOROLAC TROMETHAMINE 30 MG/1 ML VIAL IM ONE (08:18)
[2024-06-03] MEDS: diazePAM 5 MG TABLET PO ONE (08:20)
[2024-06-03] MEDS ORDERED: ACETAMINOPHEN 325 MG TABLET (FP) ONE (10:45)
[2024-06-03] MEDS ORDERED: LIDOCAINE 5% TOPICAL PATCH ONE (10:45)
[2024-06-03] MEDS: LIDOCAINE 5% TOPICAL PATCH TP ONE (10:48)
[2024-06-03] MEDS: ACETAMINOPHEN 325 MG TABLET (FP) PO ONE (10:48)
[2024-06-03] MEDS ORDERED: LIDOCAINE PATCH REMOVAL MC ONE (22:00)
== END 2024-06-03 11:00 | disposition home or self-care (01) ==
LOC: FER 07:29
PROC: 3E0133Z Introduction of Anti-inflammatory into Subcutaneous Tissue, Percutaneous Approach (ICD-10-PCS; principal; 2024-06-03)
DX: S39.012A Strain of muscle, fascia and tendon of lower back, initial encounter (principal); W18.40XA Slipping, tripping and stumbling without falling, unspecified, initial encounter
CPT/HCPCS: 99284-25